=== PATIENT | male | born 1930 | race Caucasian/White ===

== ENCOUNTER 2017-10-11 13:05 | Inpatient (IN) | payer MEDICARE, OTHER ==
[2017-10-11] MEDS ORDERED: Sodium Chloride 0.9% 10 ML Syringe FLUSH PRN (13:11)
--- NOTE | 2017-10-11 13:25 | EDM.PDOC ---
ED HPI GENERAL MEDICAL PROBLEM - General Chief Complaint: Neuro Symptoms/Deficits Stated Complaint: VERO NAJERA Time Seen by Provider: 10/11/17 13:11 Source of Information: Reports: Patient, EMS, Family History Limitations: Reports: No Limitations - History of Present Illness INITIAL COMMENTS - FREE TEXT/NARRATIVE: Patient arrives with complaints of reduced LOC, weak left side, unequal pupils. Last known well of 1230 today. Upon arrival EMS states that left sided weakness is improving to the upper extremity, still same on left lower. They also state he oxygen saturation was 85% on room air on their arrival. Vero najera was called on this patient before his arrival. His describes him having a cough over the last couple of days. He is alert, oriented and has a score of 0 for NIHH. Patient denies history of CVA, IN, diabetes, liver issues. No kidney problems. He is being treated for prostate cancer. Additional medical history includes gout, HTN, hypercholesterolemia, BPH. He has no complaints today except for his cough and feeling a bit short of breath. Onset: Today, Sudden Onset Time: 12:30 Duration: Improving Location: Reports: Chest Associated Symptoms: Reports: Cough, Shortness of Breath - Related Data Allergies Allergy/AdvReac Type Severity Reaction Status Date / Time bupropion [From Wellbutrin] Allergy Lightheaded Verified 10/11/17 15:33 ness Penicillins Allergy Hives Verified 10/11/17 15:33 Home Meds: Home Meds Allopurinol [Zyloprim] 300 mg PO DAILY 10/11/17 [History] Ascorbic Acid 1,000 mg PO DAILY 10/11/17 [History] Aspirin [Halfprin] 81 mg PO DAILY 10/11/17 [History] Bicalutamide [Casodex] 50 mg PO DAILY 10/11/17 [History] Calcium Carbonate [Calcium] 600 mg PO DAILY 10/11/17 [History] Cholecalciferol (Vitamin D3) [Vitamin D] 1,000 units PO DAILY 10/11/17 [History] Metoprolol Succinate [Toprol XL] 12.5 mg PO BEDTIME 10/11/17 [History] Nitroglycerin [Nitrostat] 0.4 mg SL ASDIRECTED PRN 10/11/17 [History] Pramipexole Di-HCl [Mirapex] 0.25 mg PO BID 10/11/17 [History] Pramipexole [Mirapex] 0.125 mg PO DAILY 10/11/17 [History] Simvastatin 40 mg PO DAILY 10/11/17 [History] Tamsulosin [Tamsulosin 24 Hr] 0.4 mg PO DAILY 10/11/17 [History] ED ROS GENERAL - Review of Systems Review Of Systems: See Below Constitutional: Reports: No Symptoms HEENT: Reports: No Symptoms Respiratory: Reports: Shortness of Breath, Cough Cardiovascular: Reports: No Symptoms Endocrine: Reports: No Symptoms GI/Abdominal: Reports: No Symptoms : Reports: No Symptoms Musculoskeletal: Reports: No Symptoms Skin: Reports: No Symptoms Neurological: Reports: Confusion, Tremors, Weakness, Gait Disturbance, Other ( this is gathered from his . she also states confused speech) Psychiatric: Reports: No Symptoms Hematologic/Lymphatic: Reports: No Symptoms Immunologic: Reports: No Symptoms ED EXAM, NEURO - Physical Exam Exam: See Below Exam Limited By: No Limitations General Appearance: Alert, WD/WN, No Apparent Distress Eye Exam: Bilateral Eye: Abnormal Pupil (left pupil 3 mm, right 2 mm), EOMI, Normal Inspection, PERRL Ears: Normal TMs Throat/Mouth: Normal Inspection, Normal Lips, Normal Teeth, Normal Gums, Normal Oropharynx, Normal Voice, No Airway Compromise Head Exam: Atraumatic, Normocephalic Neck: Normal Inspection, Supple, Non-Tender, Full Range of Motion Respiratory/Chest: No Respiratory Distress, No Accessory Muscle Use, Chest Non- Tender, Rales Cardiovascular: Normal Peripheral Pulses, Regular Rate, Rhythm, No Edema, No Gallop, No JVD, No Murmur, No Rub GI/Abdominal: Normal Bowel Sounds, Soft, Non-Tender, No Organomegaly, No Distention, No Abnormal Bruit, No Mass Neurological: Alert, Normal Mood/Affect, Normal Dorsiflexion, CN II-XII Intact, Normal Plantar Flexion, Normal Gait, Normal Reflexes, No Motor/Sensory Deficits , Oriented x 3 Back Exam: Normal Inspection, Full Range of Motion, NT Extremities: Normal Inspection, Normal Range of Motion, Non-Tender, No Pedal Edema, Normal Capillary Refill Psychiatric: Normal Affect, Normal Mood Skin Exam: Warm, Dry, Intact, Normal Color, No Rash Course - Vital Signs Last Recorded V/S: Last Vital Signs Temp 36.6 C 10/11/17 15:10 Pulse 69 04/15/18 15:10 Resp 18 10/11/17 15:10 BP 131/58 L 10/11/17 15:10 Pulse Ox 94 L 10/11/17 15:10 - Orders/Labs/Meds Orders: Active Orders 24 hr Category Date Time Status Chest 1V Frontal [CR] Stat Exams 10/11/17 13:31 Taken Head wo Cont [CT] Stat Exams 10/11/17 13:11 Taken CULTURE BLOOD [BC] Stat Lab 10/11/17 14:03 Received CULTURE BLOOD [BC] Stat Lab 10/11/17 14:09 Received URINALYSIS W/MICROSCOPIC [UA W/MICROSCOPIC] [URIN] Stat Lab 10/11/17 13:56 Ordered Sodium Chloride 0.9% [Saline Flush] Med 10/11/17 13:11 Active 10 ml FLUSH ASDIRECTED PRN Blood Culture x2 Reflex Set [OM.PC] Stat Oth 10/11/17 13:42 Ordered Saline Lock Insert [OM.PC] Routine Oth 10/11/17 13:11 Ordered Medication Orders Sodium Chloride (Saline Flush) 10 ml FLUSH ASDIRECTED PRN PRN Reason: Keep Vein Open Last Admin: 10/11/17 15:55 Dose: 10 ml Labs: Laboratory Tests 10/11/17 10/11/17 10/11/17 Range/Units 13:29 13:29 13:29 WBC 11.7 H (4.0-10.0) x10^3/uL RBC 3.80 L (4.5-6.0) x10^6/uL Hgb 12.4 L (14.0-18.0) g/dL Hct 36.1 L (40.0-52.0) % MCV 95.0 H (78.0-93.0) fL MCH 32.6 H (26.0-32.0) pg MCHC 34.3 (32.0-36.0) g/dL RDW Coeff of Daisy 13.7 (10.0-15.0) % Plt Count 154 (130-400) x10^3/uL Neut % (Auto) 73.1 (50.0-80.0) % Lymph % (Auto) 13.4 L (25.0-50.0) % [place] % (Auto) 13.1 H (2.0-11.0) % Eos % (Auto) 0.2 (0.0-4.0) % Baso % (Auto) 0.2 (0.2-1.2) % PT 11.0 (9.8-11.8) SEC INR 1.0 L (2.0-3.5) APTT (22.0-34.0) SEC POC Sodium Sodium 125 L* (138-146) mmol/L POC Potassium Potassium 4.0 (3.5-4.9) mmol/L POC Chloride Chloride 88 L (98-109) mmol/L Carbon Dioxide 24 (24-29) mmol/L POC Total CO2 Anion Gap 17.0 (10-20) mmol/L POC Anion Gap POC BUN BUN 18 (8-26) mg/dL Creatinine 1.4 H (0.6-1.3) mg/dL POC Creatinine Est Cr Clr Drug Dosing TNP Estimated GFR (MDRD) 48 Glucose 104 (70-105) mg/dL POC Glucose Lactic Acid (0.4-2.0) mmol/L Calcium 8.4 L (8.5-10.1) mg/dL Corrected Calcium 8.64 (8.5-10.1) mg/dL Total Bilirubin 0.6 (0.2-1.0) mg/dL AST 28 (15-37) U/L ALT 24 (16-63) U/L Alkaline Phosphatase 36 L (46-116) U/L POC Troponin I (0.00-0.08) ng/mL Troponin I Cancelled NT-Pro-B Natriuret Pep (<=450) pg/mL Total Protein 7.0 (6.4-8.2) g/dL Albumin 3.7 (3.4-5.0) g/dL Globulin 3.3 g/dL Albumin/Globulin Ratio 1.12 TSH, Ultra Sensitive (0.358-3.74) uIU/mL Urine Color (YELLOW) Urine Appearance (CLEAR) Urine pH (5.0-8.0) Ur Specific [place] Urine Protein (NEGATIVE) mg/dL Urine Glucose (UA) (NEGATIVE) mg/dL Urine Ketones (NEGATIVE) mg/dL Urine Occult Blood (NEGATIVE) Urine Nitrite (NEGATIVE) Urine Bilirubin (NEGATIVE) Urine Urobilinogen (0.2) EU/dL Ur Leukocyte Esterase (NEGATIVE) Urine RBC (NOT SEEN) /HPF Urine WBC (NOT SEEN) /HPF Ur Squamous Epith Cells (NEGATIVE) /HPF Urine Bacteria (NEGATIVE) /HPF Urine Mucus (NEGATIVE) /LPF 10/11/17 10/11/17 10/11/17 Range/Units 13:29 13:29 13:29 WBC (4.0-10.0) x10^3/uL RBC (4.5-6.0) x10^6/uL Hgb (14.0-18.0) g/dL Hct (40.0-52.0) % MCV (78.0-93.0) fL MCH (26.0-32.0) pg MCHC (32.0-36.0) g/dL RDW Coeff of Daisy (10.0-15.0) % Plt Count (130-400) x10^3/uL Neut % (Auto) (50.0-80.0) % Lymph % (Auto) (25.0-50.0) % [place] % (Auto) (2.0-11.0) % Eos % (Auto) (0.0-4.0) % Baso % (Auto) (0.2-1.2) % PT (9.8-11.8) SEC INR (2.0-3.5) APTT 28.3 (22.0-34.0) SEC POC Sodium Sodium (138-146) mmol/L POC Potassium Potassium (3.5-4.9) mmol/L POC Chloride Chloride (98-109) mmol/L Carbon Dioxide (24-29) mmol/L POC Total CO2 Anion Gap (10-20) mmol/L POC Anion Gap POC BUN BUN (8-26) mg/dL Creatinine (0.6-1.3) mg/dL POC Creatinine Est Cr Clr Drug Dosing Estimated GFR (MDRD) Glucose (70-105) mg/dL POC Glucose Lactic Acid 0.9 (0.4-2.0) mmol/L Calcium (8.5-10.1) mg/dL Corrected Calcium (8.5-10.1) mg/dL Total Bilirubin (0.2-1.0) mg/dL AST (15-37) U/L ALT (16-63) U/L Alkaline Phosphatase (46-116) U/L POC Troponin I (0.00-0.08) ng/mL Troponin I NT-Pro-B Natriuret Pep 928 H (<=450) pg/mL Total Protein (6.4-8.2) g/dL Albumin (3.4-5.0) g/dL Globulin g/dL Albumin/Globulin Ratio TSH, Ultra Sensitive 3.704 (0.358-3.74) uIU/mL Urine Color (YELLOW) Urine Appearance (CLEAR) Urine pH (5.0-8.0) Ur Specific [place] Urine Protein (NEGATIVE) mg/dL Urine Glucose (UA) (NEGATIVE) mg/dL Urine Ketones (NEGATIVE) mg/dL Urine Occult Blood (NEGATIVE) Urine Nitrite (NEGATIVE) Urine Bilirubin (NEGATIVE) Urine Urobilinogen (0.2) EU/dL Ur Leukocyte Esterase (NEGATIVE) Urine RBC (NOT SEEN) /HPF Urine WBC (NOT SEEN) /HPF Ur Squamous Epith Cells (NEGATIVE) /HPF Urine Bacteria (NEGATIVE) /HPF Urine Mucus (NEGATIVE) /LPF 10/11/17 10/11/17 10/11/17 Range/Units 13:35 13:37 13:56 WBC (4.0-10.0) x10^3/uL RBC (4.5-6.0) x10^6/uL Hgb (14.0-18.0) g/dL Hct (40.0-52.0) % MCV (78.0-93.0) fL MCH (26.0-32.0) pg MCHC (32.0-36.0) g/dL RDW Coeff of Daisy (10.0-15.0) % Plt Count (130-400) x10^3/uL Neut % (Auto) (50.0-80.0) % Lymph % (Auto) (25.0-50.0) % [place] % (Auto) (2.0-11.0) % Eos % (Auto) (0.0-4.0) % Baso % (Auto) (0.2-1.2) % PT (9.8-11.8) SEC INR (2.0-3.5) APTT (22.0-34.0) SEC POC Sodium Cancelled Sodium (138-146) mmol/L POC Potassium Cancelled Potassium (3.5-4.9) mmol/L POC Chloride Cancelled Chloride (98-109) mmol/L Carbon Dioxide (24-29) mmol/L POC Total CO2 Cancelled Anion Gap (10-20) mmol/L POC Anion Gap Cancelled POC BUN Cancelled BUN (8-26) mg/dL Creatinine (0.6-1.3) mg/dL POC Creatinine Cancelled Est Cr Clr Drug Dosing Estimated GFR (MDRD) Glucose (70-105) mg/dL POC Glucose Cancelled Lactic Acid (0.4-2.0) mmol/L Calcium (8.5-10.1) mg/dL Corrected Calcium (8.5-10.1) mg/dL Total Bilirubin (0.2-1.0) mg/dL AST (15-37) U/L ALT (16-63) U/L Alkaline Phosphatase (46-116) U/L POC Troponin I 0.02 (0.00-0.08) ng/mL Troponin I NT-Pro-B Natriuret Pep (<=450) pg/mL Total Protein (6.4-8.2) g/dL Albumin (3.4-5.0) g/dL Globulin g/dL Albumin/Globulin Ratio TSH, Ultra Sensitive (0.358-3.74) uIU/mL Urine Color Yellow (YELLOW) Urine Appearance Clear (CLEAR) Urine pH 7.0 (5.0-8.0) Ur Specific [place] 1.015 Urine Protein 100 H (NEGATIVE) mg/dL Urine Glucose (UA) Negative (NEGATIVE) mg/dL Urine Ketones Trace H (NEGATIVE) mg/dL Urine Occult Blood Trace-intact H (NEGATIVE) Urine Nitrite Negative (NEGATIVE) Urine Bilirubin Negative (NEGATIVE) Urine Urobilinogen 0.2 (0.2) EU/dL Ur Leukocyte Esterase Trace H (NEGATIVE) Urine RBC 5-10 H (NOT SEEN) /HPF Urine WBC 5-10 H (NOT SEEN) /HPF Ur Squamous Epith Cells Moderate H (NEGATIVE) /HPF Urine Bacteria Few H (NEGATIVE) /HPF Urine Mucus Many H (NEGATIVE) /LPF Meds: Medications Generic Name Dose Route Start Last Admin Trade Name Freq PRN Reason Stop Dose Admin Sodium Chloride 10 ml 10/11/17 13:11 10/11/17 15:55 Saline Flush FLUSH 10 ml ASDIRECTED PRN Administration Keep Vein Open Discontinued Medications Generic Name Dose Route Start Last Admin Trade Name Ez PRN Reason Stop Dose Admin Azithromycin Confirm 10/11/17 14:39 10/11/17 15:29 Zithromax Administered 10/11/17 14:40 Not Given Dose 500 mg .ROUTE .STK-MED ONE Ceftriaxone Sodium 1 gm 10/11/17 13:31 10/11/17 14:11 Rocephin IVPUSH 10/11/17 13:32 1 gm ONETIME ONE Administration Vancomycin HCl 1,250 mg/ 250 mls @ 200 mls/hr 10/11/17 13:31 10/11/17 15:29 Sodium Chloride IV 10/11/17 14:45 Not Given ONETIME ONE Azithromycin 500 mg/ Sodium 250 mls @ 250 mls/hr 10/11/17 14:18 10/11/17 14: 51 Chloride IV 10/11/17 15:17 250 mls/hr ONETIME ONE Administration - Re-Assessments/Exams Free Text/Narrative Re-Assessment/Exam: 10/11/17 16:13 Chest x-ray shows left lower lobe infiltrates. No acute cranial process on head CT. Departure - Departure Time of Disposition: 15:03 Disposition: Admitted As Inpatient 66 Condition: Good Clinical Impression: Hyponatremia, Community acquired bacterial pneumonia - Discharge Information ED Communication - Discussed Case With (1) Discussed Case With (1): Admitting Provider (Called Dr. Topete with information regarding patient labs, etc. Patient to be admitted acute for pneumonia, hyponatremia) - My Orders Last 24 Hours: My Active Orders 10/11/17 13:11 Head wo Cont [CT] Stat Sodium Chloride 0.9% [Saline Flush] 10 ml FLUSH ASDIRECTED PRN Saline Lock Insert [OM.PC] Routine 10/11/17 13:31 Chest 1V Frontal [CR] Stat 10/11/17 13:42 Blood Culture x2 Reflex Set [OM.PC] Stat 10/11/17 13:56 URINALYSIS W/MICROSCOPIC [UA W/MICROSCOPIC] [URIN] Stat 10/11/17 14:03 CULTURE BLOOD [BC] Stat 10/11/17 14:09 CULTURE BLOOD [BC] Stat - Assessment/Plan Last 24 Hours: My Active Orders 10/11/17 13:11 Head wo Cont [CT] Stat Sodium Chloride 0.9% [Saline Flush] 10 ml FLUSH ASDIRECTED PRN Saline Lock Insert [OM.PC] Routine 10/11/17 13:31 Chest 1V Frontal [CR] Stat 10/11/17 13:42 Blood Culture x2 Reflex Set [OM.PC] Stat 10/11/17 13:56 URINALYSIS W/MICROSCOPIC [UA W/MICROSCOPIC] [URIN] Stat 10/11/17 14:03 CULTURE BLOOD [BC] Stat 10/11/17 14:09 CULTURE BLOOD [BC] Stat
[2017-10-11] MEDS ORDERED: cefTRIAXone 1 GM Vial IVPUSH ONE (13:31)
[2017-10-11 13:40] LABS: CHLORIDE,CL 88 mmol/L (98-109)
[2017-10-11 13:41] LABS: SODIUM,NA 125 mmol/L (138-146)
[2017-10-11] MEDS ORDERED: Azithromycin 500 MG in Sodium Chloride 0.9% 250 ML IV ONE (14:18)
[2017-10-11] MEDS ORDERED: Azithromycin 500 MG Vial ONE (14:39)
[2017-10-11] MEDS ORDERED: Albuterol 0.083% 2.5 MG/3 ML Neb Soln NEB PRN (16:53)
[2017-10-11] MEDS ORDERED: Nitroglycerin 0.4 MG Tab.SL SL PRN (16:59)
[2017-10-11] MEDS ORDERED: Albuterol/Ipratropium 3.0-0.5 MG/3 ML Neb Soln NEB SCH (17:00)
[2017-10-11] MEDS ORDERED: Azithromycin 500 MG in Sodium Chloride 0.9% 250 ML IV SCH (17:00)
[2017-10-11] MEDS ORDERED: cefTRIAXone 1 GM Vial IVPUSH SCH (17:00)
[2017-10-11] MEDS: Sodium Chloride 0.9% 1,000 ML IV SCH (17:18)
[2017-10-11] MEDS: Enoxaparin 40 MG/0.4 ML Syringe SUBCUT SCH (17:37)
[2017-10-11] MEDS: Albuterol/Ipratropium 3.0-0.5 MG/3 ML Neb Soln NEB SCH (18:27)
[2017-10-11] MEDS: Pramipexole 0.125 MG Tab PO SCH (19:45)
[2017-10-11] MEDS: Metoprolol Succinate 25 MG Tab.ER PO SCH (19:45)
--- NOTE | 2017-10-11 23:40 | HP ---
SUBJECTIVE: 87-year-old white male, brought to the emergency room by ambulance this afternoon. had noted some changes in him. Ambulance noticed some reduced level of consciousness and some mild left-sided weakness and unequal pupils, and because of that a code reinaldo was called. He was also noted to have O2 sats of 85% on room air on his arrival. In the emergency room, his NIH score was 0, and his head CT was unremarkable per ED report. He had also been having cold symptoms for the past couple of days with significant cough especially yesterday. The cough was nonproductive, but he has began having some increased shortness of breath and was baseline. No chest pain or discomfort was reported. PAST MEDICAL HISTORY: Significant for hyperlipidemia, hypertension, prostate cancer, BPH, coronary artery disease with stents placed in 2001, quadriceps tendon rupture, gout, arthritis, chronic back pain, tubular adenoma of the colon, he is a smoker, restless legs syndrome, degenerative disk disease of lumbar spine. He was scheduled for carpal tunnel surgery this coming Thursday. He had a preop this past week at [facility]. His [facility] chart was available for review. HOME MEDICATIONS: 1. Calcium 600 mg daily. 2. Casodex 50 mg daily. 3. Allopurinol 300 mg daily. 4. Simvastatin 40 mg daily. 5. Metoprolol-XL 25 mg daily. 6. Mirapex 0.25 mg b.i.d. and half a tablet in the morning. 7. Flomax 0.4 mg daily. 8. Aspirin 81 mg daily. 9. Vitamin D 1000 units daily. 10.Vitamin C 500 mg daily. 11.Sublingual nitroglycerin p.r.n. 12.He also receives Lupron injections every three months along with Prolia injection. ALLERGIES: Wellbutrin and penicillin causing hives. IMMUNIZATIONS: Currently listed in the [facility] chart. SOCIAL HISTORY: He is a smoker. Occasional alcohol use. REVIEW OF SYSTEMS: Denies any headache. Denies any upper respiratory symptoms. No nausea, vomiting, or abdominal pain. No change in bowel habits. Some urinary frequency. Denies any symptoms in his extremities. OBJECTIVE: General: He is alert, tired, lying in bed. Vital Signs: His temperature is 98, pulse is 69, blood pressure is 131/58, respirations are 18, and O2 sats 94%. HEENT: Pupils are unremarkable. TMs negative. Throat is clear. Neck: No adenopathy. Some decreased range of motion. Heart: Regular rate and rhythm. No murmur heard. Lungs: Have diffuse rhonchi, some expiratory wheezing and some rales in the left base. Abdomen: Soft, nontender, protuberant. No masses. No hepatosplenomegaly noted. Extremities: Good range of motion. There is no edema. Warm and dry. Pulses intact. Neurologic: Deep tendon reflexes are symmetrical. Sensation intact. LABORATORY DATA: White count 11.7, hemoglobin 12.4, INR of 1. Sodium 125, potassium 4.0, BUN of 18, creatinine 1.4, glucose of 104. Lactic acid 0.9. LFT's are normal. Troponin is negative. ProBNP is 928. TSH is normal at 3.704. X-RAY: Chest x-ray done in the emergency room consistent with pneumonia, probable bilateral. Here in the emergency room, he was given Rocephin 1 g IV and azithromycin 500 mg IV. I do not believe he got the vancomycin. ASSESSMENT: 1. Bilateral pneumonitis - community-acquired pneumonia. 2. Hyponatremia. 3. Coronary artery disease. 4. Hyperlipidemia. 5. Hypertension. 6. Prostate cancer. PLAN: The patient will be admitted to acute care status. We will continue with his Rocephin and Zithromax antibiotics. Start DuoNeb nebulizers. O2 as needed. We will place him on a fluid restriction, and give him a little bit of IV fluids for his hyponatremia. He identifies Dr. Emilie Louis, his primary provider and she will assume care in the morning. FM: 10/11/2017 17:15:39 MODL: 10/11/2017 23:08:43 /[id number]
[2017-10-12] MEDS: Albuterol/Ipratropium 3.0-0.5 MG/3 ML Neb Soln NEB SCH ×4 (00:40→18:18)
[2017-10-12] MEDS: Sodium Chloride 0.9% 1,000 ML IV SCH (06:46)
[2017-10-12 07:06] LABS: CHLORIDE,CL 96 mmol/L (98-107); SODIUM,NA 130 mmol/L (136-145)
[2017-10-12] MEDS: Simvastatin 40 MG Tab PO SCH (08:21)
[2017-10-12] MEDS: Calcium Carbonate/Vitamin D3 1250 MG-200 Unit Tab PO SCH (08:21)
[2017-10-12] MEDS: Tamsulosin 0.4 MG Cap.ER PO SCH (08:22)
[2017-10-12] MEDS: Enoxaparin 40 MG/0.4 ML Syringe SUBCUT SCH (08:22)
[2017-10-12] MEDS: Aspirin 81 MG Tab.EC PO SCH (08:22)
[2017-10-12] MEDS: Pramipexole 0.125 MG Tab PO SCH ×3 (08:22→20:43)
[2017-10-12] MEDS: Ascorbic Acid 500 MG Tab PO SCH (08:22)
[2017-10-12] MEDS: Cholecalciferol (Vitamin D3) 1,000 Unit Tab PO SCH (08:22)
[2017-10-12] MEDS: Allopurinol 300 MG Tab PO SCH (08:23)
[2017-10-12] MEDS: Potassium Chloride 10 MEQ Tab.ER PO SCH (09:17)
[2017-10-12] MEDS: predniSONE 20 MG Tab PO SCH (09:17)
--- NOTE | 2017-10-12 11:20 | PN ---
Progress Note for WING MIRANDA Date: 10/12/2017 Room #: VM.204 SUBJECTIVE: Hospital day #2 on an 87-year-old admitted yesterday with generalized weakness, concern for a stroke with some left-sided weakness, but found to have pneumonia. He had been having cold symptoms since Thursday, so for about 2 to 3 days, but really got sick yesterday. He denied any fever. He states he was not wheezing. His cough was not productive, but he was short of breath. He has known history of COPD, but is not on any inhalers. He continues to smoke. The patient denies any chest pain. No stomach pain. He is not requiring any oxygen. OBJECTIVE: Vital Signs: Objectively, temperature is 98, pulse 56, blood pressure 146/76, respiratory rate 18, and O2 95% on room air. General: He is in no acute distress. Heart: Regular rate and rhythm. Lungs: Sounds are decreased with rhonchi throughout. Mental Status: He is alert and orientated x3. Extremities: Warm and dry. No edema. Abdomen: Nondistended, nontender. LABORATORY DATA: Lab work does show white count improved from 11.7 to 7.2, hemoglobin 11.9, and platelets 161. Sodium improved up to 130, potassium 3.4, chloride 96, bicarb 25, BUN 19, creatinine improved from 1.4 to 0.9, and calcium 8.1. It should also be noted in the HPI, he was having some nocturia prior to admission. UA did show 5 to 10 wbc's and 5 to 10 rbc's. ASSESSMENT: 1. Bilateral community-acquired pneumonia. He is on day #2 Rocephin and Zithromax. 2. Chronic obstructive pulmonary disease exacerbation due to bilateral pneumonia. We will continue scheduled nebs. I will start some oral prednisone 20 mg daily today. We will get RT involved for flutter valve. 3. Hyponatremia, improving. The patient does have a history of this. Likely, it has worsened due to pneumonia. I am going to discontinue the fluid restriction as I am stopping intravenous fluids. We will repeat a sodium tomorrow. 4. History of coronary artery disease, stable without chest pain. 5. Known BPH. We will check a bladder scan for any urinary retention, especially given nocturia. 6. Essential hypertension, controlled. 7. Prostate cancer, on treatments. 8. Smoking. 9. Generalized weakness. This was due to pneumonia. The patient is not having any focal symptoms to suggest stroke. PLAN: At this point, the patient will continue acute cares. I will keep him on IV Rocephin. We will try switching over to oral Zithromax today. We will stop IV fluids. We will remove the fluid restriction. He is on Lovenox 40 daily for DVT prophylaxis. We will get him up and moving with therapies. I anticipate hopefully discharge home as soon as tomorrow. He also had some vancomycin ordered initially in the ER, but that was never given. Blood cultures are pending. Sputum culture has been ordered. MKA: 10/12/2017 08:46:28 MODL: 10/12/2017 09:22:13 /[id number]
[2017-10-12] MEDS: cefTRIAXone 1 GM Vial IVPUSH SCH (13:03)
[2017-10-12] MEDS ORDERED: Azithromycin 500 MG in Sodium Chloride 0.9% 250 ML IV SCH (14:00)
[2017-10-12] MEDS: Metoprolol Succinate 25 MG Tab.ER PO SCH (20:44)
[2017-10-13] MEDS: Albuterol/Ipratropium 3.0-0.5 MG/3 ML Neb Soln NEB SCH ×4 (01:17→18:17)
[2017-10-13] MEDS: Aspirin 81 MG Tab.EC PO SCH (07:31)
[2017-10-13] MEDS: Tamsulosin 0.4 MG Cap.ER PO SCH (07:31)
[2017-10-13] MEDS: predniSONE 20 MG Tab PO SCH (07:31)
[2017-10-13] MEDS: Cholecalciferol (Vitamin D3) 1,000 Unit Tab PO SCH (07:31)
[2017-10-13] MEDS: Ascorbic Acid 500 MG Tab PO SCH (07:31)
[2017-10-13] MEDS: Potassium Chloride 10 MEQ Tab.ER PO SCH (07:31)
[2017-10-13] MEDS: Simvastatin 40 MG Tab PO SCH (07:31)
[2017-10-13] MEDS: Calcium Carbonate/Vitamin D3 1250 MG-200 Unit Tab PO SCH (07:32)
[2017-10-13] MEDS: Allopurinol 300 MG Tab PO SCH (07:32)
[2017-10-13] MEDS: Pramipexole 0.125 MG Tab PO SCH ×3 (07:32→20:46)
[2017-10-13] MEDS: Enoxaparin 40 MG/0.4 ML Syringe SUBCUT SCH (07:32)
[2017-10-13 07:50] LABS: CHLORIDE,CL 98 mmol/L (98-107); SODIUM,NA 132 mmol/L (136-145)
--- NOTE | 2017-10-13 11:56 | PCM.PN ---
- General Info Date of Service: 10/13/17 Admission Dx/Problem (Free Text): History: He is now in his third day of hospitalization for acute bronchopneumonia, with hypoxia, cough, and dyspnea, though his CXR shows only a vague patchy infiltrate. He has known COPD and was continuing to smoke up to the time of admission. He is on Rocephin and Zithromax, is feeling better, thinks he might feel well enough to go home but says his wants to make sure he doesnt come home until he is back on his feet. He has only done a little bit of walking with his walker so far. Even though his respiration is very coarse and noisy, he has so far been unable to bring up any sputum for culture as has been ordered. He is on room air and his oximetry is up to 92%, and his Na+ which was low at first is back up to 132 today, only mildly decreased. K+ also mildly decreased , 3.4. Exam: -Heart sounds quite diminished, seem regular -Not obviously dyspneic lying in bed, but his lung sounds are very coarse and rattling throughout -Alert and answers questions appropriately, no facial asymmetry noted Impression: -Bronchopneumonia -Exacerbation of COPD -Hyponatremia, improved Plan: -If he can walk around fairly well with his walker today, then let him go home tomorrow, will need to remind his that his lungs will never be normal so we cant keep him in the hospital until then. -CXR tomorrow - Patient Data Vitals - Most Recent: Last Vital Signs Temp 36.6 C 10/13/17 10:00 Pulse 65 10/13/17 10:00 Resp 20 10/13/17 10:00 BP 150/93 H 10/13/17 10:00 Pulse Ox 92 L 10/13/17 10:00 Weight - Most Recent: 90.265 kg I&O - Last 24 Hours: Intake & Output 10/12/17 10/13/17 10/13/17 22:59 06:59 14:59 Intake Total 580 350 660 Output Total 500 300 Balance 580 -150 360 Lab Results Last 24 Hours: Laboratory Results - last 24 hr 10/13/17 10/13/17 Range/Units 06:54 06:54 WBC 6.9 (4.0-10.0) x10^3/uL RBC 3.36 L (4.5-6.0) x10^6/uL Hgb 10.9 L (14.0-18.0) g/dL Hct 31.8 L (40.0-52.0) % MCV 94.6 H (78.0-93.0) fL MCH 32.4 H (26.0-32.0) pg MCHC 34.3 (32.0-36.0) g/dL RDW Coeff of Daisy 13.4 (10.0-15.0) % Plt Count 165 (130-400) x10^3/uL Neut % (Auto) 66.5 (50.0-80.0) % Lymph % (Auto) 21.4 L (25.0-50.0) % [place] % (Auto) 11.9 H (2.0-11.0) % Eos % (Auto) 0.1 (0.0-4.0) % Baso % (Auto) 0.1 L (0.2-1.2) % Sodium 132 L (136-145) mmol/L Potassium 3.4 L (3.5-5.1) mmol/L Chloride 98 (98-107) mmol/L Carbon Dioxide 25 (21-32) mmol/L Anion Gap 12.4 (10-20) mmol/L BUN 17 (7-18) mg/dL Creatinine 0.8 (0.70-1.30) mg/dL Est Cr Clr Drug Dosing 69.29 mL/min Estimated GFR (MDRD) > 60 Glucose 96 (74-106) mg/dL Calcium 8.0 L (8.5-10.1) mg/dL Wolfgang Results Last 24 Hours: Microbiology 10/11/17 14:09 Aerobic Blood Culture - Preliminary Blood - Venous - Lab Draw NO GROWTH AFTER 1 DAY Anaerobic Blood Culture - Preliminary NO GROWTH AFTER 1 DAY 10/11/17 14:03 Aerobic Blood Culture - Preliminary Blood - Venous NO GROWTH AFTER 1 DAY Anaerobic Blood Culture - Preliminary NO GROWTH AFTER 1 DAY Med Orders - Current: Current Medications Albuterol (Proventil Neb Soln) 2.5 mg NEB Q2H PRN PRN Reason: Dyspnea Albuterol/Ipratropium (Duoneb 3.0-0.5 Mg/3 Ml) 3 ml NEB Q6HRRT [facility] Last Admin: 10/13/17 07:11 Dose: 3 ml Allopurinol (Zyloprim) 300 mg PO DAILY [facility] Last Admin: 10/13/17 07:32 Dose: 300 mg Ascorbic Acid (Vitamin C) 1,000 mg PO DAILY [facility] Last Admin: 10/13/17 07:31 Dose: 1,000 mg Aspirin (Halfprin) 81 mg PO DAILY [facility] Last Admin: 10/13/17 07:31 Dose: 81 mg Azithromycin (Zithromax) 500 mg PO DAILY [facility] Calcium Carbonate (Calcium Carbonate/Vitamin D 1250 Mg-200 Unit) 1 tab PO DAILY [facility] Last Admin: 10/13/17 07:32 Dose: 1 tab Ceftriaxone Sodium (Rocephin) 1 gm IVPUSH Q24H [facility] Last Admin: 10/12/17 13:03 Dose: 1 gm Cholecalciferol (Vitamin D3) 1,000 units PO DAILY [facility] Last Admin: 10/13/17 07:31 Dose: 1,000 units Enoxaparin Sodium (Lovenox) 40 mg SUBCUT DAILY [facility] Last Admin: 10/13/17 07:32 Dose: 40 mg Metoprolol Succinate (Toprol Xl) 12.5 mg PO BEDTIME [facility] Last Admin: 10/12/17 20:44 Dose: 12.5 mg Nitroglycerin (Nitrostat) 0.4 mg SL ASDIRECTED PRN PRN Reason: Chest Pain (Bicalutamide [ Casodex] 50 Mg)Own Med 50 mg PO DAILY [facility] Last Admin: 10/13/17 07:32 Dose: Not Given Potassium Chloride (Klor-Con 10) 20 meq PO WITHBREAKFAST [facility] Last Admin: 10/13/17 07:31 Dose: 20 meq Pramipexole Dihydrochloride (Mirapex) 0.125 mg PO DAILY [facility] Last Admin: 10/13/17 07:32 Dose: 0.125 mg Pramipexole Dihydrochloride (Mirapex) 0.25 mg PO BID@1300,2000 [facility] Last Admin: 10/12/17 20:43 Dose: 0.25 mg Prednisone (Prednisone) 20 mg PO WITHBREAKFAST [facility] Last Admin: 10/13/17 07:31 Dose: 20 mg Simvastatin (Zocor) 40 mg PO DAILY [facility] Last Admin: 10/13/17 07:31 Dose: 40 mg Sodium Chloride (Saline Flush) 10 ml FLUSH ASDIRECTED PRN PRN Reason: Keep Vein Open Last Admin: 10/11/17 15:55 Dose: 10 ml Tamsulosin HCl (Flomax) 0.4 mg PO DAILY [facility] Last Admin: 10/13/17 07:31 Dose: 0.4 mg Discontinued Medications Albuterol/Ipratropium (Duoneb 3.0-0.5 Mg/3 Ml) 3 ml NEB Q6H [facility] Last Admin: 10/11/17 17:26 Dose: Not Given Azithromycin (Zithromax) Confirm Administered Dose 500 mg .ROUTE .STK-MED ONE Stop: 10/11/17 14:40 Last Admin: 10/11/17 15:29 Dose: Not Given Ceftriaxone Sodium (Rocephin) 1 gm IVPUSH ONETIME ONE Stop: 10/11/17 13:32 Last Admin: 10/11/17 14:11 Dose: 1 gm Vancomycin HCl 1,250 mg/ (Sodium Chloride) 250 mls @ 200 mls/hr IV ONETIME ONE Stop: 10/11/17 14:45 Last Admin: 10/11/17 15:29 Dose: Not Given Azithromycin 500 mg/ Sodium (Chloride) 250 mls @ 250 mls/hr IV ONETIME ONE Stop: 10/11/17 15:17 Last Admin: 10/11/17 14:51 Dose: 250 mls/hr Sodium Chloride (Normal Saline) 1,000 mls @ 75 mls/hr IV ASDIRECTED [facility] Last Admin: 10/12/17 06:46 Dose: 75 mls/hr Azithromycin 500 mg/ Sodium (Chloride) 250 mls @ 250 mls/hr IV Q24H [facility] - Problem List Review Problem List Initiated/Reviewed/Updated: Yes - My Orders Last 24 Hours: My Active Orders 10/14/17 07:30 CXR [Chest 2V] [CR] Routine
[2017-10-13] MEDS: cefTRIAXone 1 GM Vial IVPUSH SCH (13:01)
[2017-10-13] MEDS: Metoprolol Succinate 25 MG Tab.ER PO SCH (20:45)
[2017-10-14] MEDS: Albuterol/Ipratropium 3.0-0.5 MG/3 ML Neb Soln NEB SCH ×2 (00:31→07:07)
[2017-10-14] MEDS: predniSONE 20 MG Tab PO SCH (07:25)
[2017-10-14] MEDS: Potassium Chloride 10 MEQ Tab.ER PO SCH (07:25)
[2017-10-14] MEDS: Calcium Carbonate/Vitamin D3 1250 MG-200 Unit Tab PO SCH (07:25)
[2017-10-14] MEDS: Simvastatin 40 MG Tab PO SCH (07:25)
[2017-10-14] MEDS: Pramipexole 0.125 MG Tab PO SCH (07:26)
[2017-10-14] MEDS: Ascorbic Acid 500 MG Tab PO SCH (07:26)
[2017-10-14] MEDS: Enoxaparin 40 MG/0.4 ML Syringe SUBCUT SCH (07:26)
[2017-10-14] MEDS: Aspirin 81 MG Tab.EC PO SCH (07:26)
[2017-10-14] MEDS: Cholecalciferol (Vitamin D3) 1,000 Unit Tab PO SCH (07:26)
[2017-10-14] MEDS: Allopurinol 300 MG Tab PO SCH (07:26)
[2017-10-14] MEDS: Tamsulosin 0.4 MG Cap.ER PO SCH (07:26)
--- NOTE | 2017-10-14 09:49 | PCM.DCSUM1 ---
Discharge Summary - Hospital Course Free Text/Narrative:: Discharge Diagnoses: -Bronchopneumonia -COPD -Acute delerium -Hyponatremia, improved -Hypokalemia, improved Secondary Diagnoses: -Hx prostate carcinoma -Coronary artery disease no chest pain -Restless leg syndrome Reason for Admission: Found weak, confused, hypoxic at home, first thought to have had a stroke and was admitted to ER as a Code Green. Initial Findings: -Oximetry OK -Bilateral patchy infiltrate, mild -Mildly confused -Na+ 125, K+ 4.0 Treatment and Course in Hospital: He was started on IV Rocephin, got 1 dose of IV Zithromax and was to continue orally but did not because of an error in start date entry. He remained afebrile , continued to have lots of coarse rhonchi and was quite unable to bring up sputum until the day prior to discharge. He did feel stronger and was able to walk around with a walker. With IV fluid is Na+ came up to 132, K+ remained normal at 3.5. He also received low dose oral prednisone during his hospital stay, D/Cd on discharge. Repeat CXR on 10/14/17 shows improvement. Condition on Discharge: -Heart sounds very distant but regular -Coarse rhonchi have dramatically improved since 10/13, he is coughing up some sputum -Afebrile -Vital signs including BP OK Discharge Plan: -Discussed smoking cessation, he is unwilling to commit to quitting since his smokes also but he says he will try -Ceftin 500 mg BID 4 days -Zithromax 500 mg daily 4 days -See ALYSSIA next week in clinic - Discharge Data Discharge Date: 10/14/17 Discharge Disposition: Home, Self-Care 01 Preliminary Cause of *Q: Multi System Organ Failure Condition: Good - Patient Summary/Data Consults: Consultations 10/12/17 08:24 OT Evaluation and Treatment [CONS] Routine PT Evaluation and Treatment [CONS] Routine - Discharge Plan Prescriptions/Med Rec: Azithromycin [IJD: Azithromycin] 500 mg PO DAILY #8 tab Cefuroxime Axetil [Cefuroxime] 500 mg PO BID #8 tablet Home Medications: Home Meds Allopurinol [Zyloprim] 300 mg PO DAILY 10/11/17 [History] Ascorbic Acid 1,000 mg PO DAILY 10/11/17 [History] Aspirin [Halfprin] 81 mg PO DAILY 10/11/17 [History] Bicalutamide [Casodex] 50 mg PO DAILY 10/11/17 [History] Calcium Carbonate [Calcium] 600 mg PO DAILY 10/11/17 [History] Cholecalciferol (Vitamin D3) [Vitamin D3] 1,000 units PO DAILY 10/11/17 [History ] Metoprolol Succinate [Toprol XL] 12.5 mg PO BEDTIME 10/11/17 [History] Nitroglycerin [Nitrostat] 0.4 mg SL ASDIRECTED PRN 10/11/17 [History] Pramipexole Di-HCl [Mirapex] 0.25 mg PO BID 10/11/17 [History] Pramipexole [Mirapex] 0.125 mg PO DAILY 10/11/17 [History] Simvastatin 40 mg PO DAILY 10/11/17 [History] Tamsulosin [Flomax] 0.4 mg PO DAILY 10/11/17 [History] Azithromycin [IJD: Azithromycin] 500 mg PO DAILY #8 tab 10/14/17 [Rx] Cefuroxime Axetil [Cefuroxime] 500 mg PO BID #8 tablet 10/14/17 [Rx] Forms: ED Department Discharge Referrals: Emilie Louis DO [Primary Care Provider] - - Patient Data Vitals - Most Recent: Last Vital Signs Temp 37.2 C 10/14/17 06:00 Pulse 103 H 10/14/17 06:00 Resp 18 10/14/17 06:00 BP 140/68 10/14/17 06:00 Pulse Ox 99 10/14/17 06:00 Weight - Most Recent: 89.811 kg I&O - Last 24 hours: Intake & Output 10/13/17 10/14/17 10/14/17 22:59 06:59 14:59 Intake Total 180 1500 120 Output Total 400 1500 Balance -220 0 120 JEANA Results - Last 24 hrs: Microbiology 10/11/17 14:09 Aerobic Blood Culture - Preliminary Blood - Venous - Lab Draw NO GROWTH AFTER 2 DAYS Anaerobic Blood Culture - Preliminary NO GROWTH AFTER 2 DAYS 10/11/17 14:03 Aerobic Blood Culture - Preliminary Blood - Venous NO GROWTH AFTER 2 DAYS Anaerobic Blood Culture - Preliminary NO GROWTH AFTER 2 DAYS Med Orders - Current: Current Medications Albuterol (Proventil Neb Soln) 2.5 mg NEB Q2H PRN PRN Reason: Dyspnea Last Admin: 10/14/17 04:46 Dose: 2.5 mg Albuterol/Ipratropium (Duoneb 3.0-0.5 Mg/3 Ml) 3 ml NEB Q6HRRT [facility] Last Admin: 10/14/17 07:07 Dose: 3 ml Allopurinol (Zyloprim) 300 mg PO DAILY [facility] Last Admin: 10/14/17 07:26 Dose: 300 mg Ascorbic Acid (Vitamin C) 1,000 mg PO DAILY [facility] Last Admin: 10/14/17 07:26 Dose: 1,000 mg Aspirin (Halfprin) 81 mg PO DAILY [facility] Last Admin: 10/14/17 07:26 Dose: 81 mg Azithromycin (Zithromax) 500 mg PO DAILY [facility] Calcium Carbonate (Calcium Carbonate/Vitamin D 1250 Mg-200 Unit) 1 tab PO DAILY [facility] Last Admin: 10/14/17 07:25 Dose: 1 tab Ceftriaxone Sodium (Rocephin) 1 gm IVPUSH Q24H [facility] Last Admin: 10/13/17 13:01 Dose: 1 gm Cholecalciferol (Vitamin D3) 1,000 units PO DAILY [facility] Last Admin: 10/14/17 07:26 Dose: 1,000 units Enoxaparin Sodium (Lovenox) 40 mg SUBCUT DAILY [facility] Last Admin: 10/14/17 07:26 Dose: 40 mg Metoprolol Succinate (Toprol Xl) 12.5 mg PO BEDTIME [facility] Last Admin: 10/13/17 20:45 Dose: 12.5 mg Nitroglycerin (Nitrostat) 0.4 mg SL ASDIRECTED PRN PRN Reason: Chest Pain (Bicalutamide [ Casodex] 50 Mg)Own Med 50 mg PO DAILY [facility] Last Admin: 10/14/17 07:28 Dose: 50 mg Potassium Chloride (Klor-Con 10) 20 meq PO WITHBREAKFAST [facility] Last Admin: 10/14/17 07:25 Dose: 20 meq Pramipexole Dihydrochloride (Mirapex) 0.125 mg PO DAILY [facility] Last Admin: 10/14/17 07:26 Dose: 0.125 mg Pramipexole Dihydrochloride (Mirapex) 0.25 mg PO BID@1300,2000 [facility] Last Admin: 10/13/17 20:46 Dose: 0.25 mg Prednisone (Prednisone) 20 mg PO WITHBREAKFAST [facility] Last Admin: 10/14/17 07:25 Dose: 20 mg Simvastatin (Zocor) 40 mg PO DAILY [facility] Last Admin: 10/14/17 07:25 Dose: 40 mg Sodium Chloride (Saline Flush) 10 ml FLUSH ASDIRECTED PRN PRN Reason: Keep Vein Open Last Admin: 10/11/17 15:55 Dose: 10 ml Tamsulosin HCl (Flomax) 0.4 mg PO DAILY [facility] Last Admin: 10/14/17 07:26 Dose: 0.4 mg Discontinued Medications Albuterol/Ipratropium (Duoneb 3.0-0.5 Mg/3 Ml) 3 ml NEB Q6H [facility] Last Admin: 10/11/17 17:26 Dose: Not Given Azithromycin (Zithromax) Confirm Administered Dose 500 mg .ROUTE .STK-MED ONE Stop: 10/11/17 14:40 Last Admin: 10/11/17 15:29 Dose: Not Given Ceftriaxone Sodium (Rocephin) 1 gm IVPUSH ONETIME ONE Stop: 10/11/17 13:32 Last Admin: 10/11/17 14:11 Dose: 1 gm Vancomycin HCl 1,250 mg/ (Sodium Chloride) 250 mls @ 200 mls/hr IV ONETIME ONE Stop: 10/11/17 14:45 Last Admin: 10/11/17 15:29 Dose: Not Given Azithromycin 500 mg/ Sodium (Chloride) 250 mls @ 250 mls/hr IV ONETIME ONE Stop: 10/11/17 15:17 Last Admin: 10/11/17 14:51 Dose: 250 mls/hr Sodium Chloride (Normal Saline) 1,000 mls @ 75 mls/hr IV ASDIRECTED [facility] Last Admin: 10/12/17 06:46 Dose: 75 mls/hr Azithromycin 500 mg/ Sodium (Chloride) 250 mls @ 250 mls/hr IV Q24H [facility]
[2017-10-14 09:55] VITALS: BP 153/78
[2017-10-15] MEDS ORDERED: Azithromycin 250 MG Tab PO SCH (09:00)
== END 2017-10-14 12:13 | disposition home or self-care (01) | DRG 194 ==
LOC: VM.ED 13:05 → VM.MS 14:21
PROVIDERS: ADMIT Family Medicine; ATTEND Internal Medicine
DX: J15.9 Unspecified bacterial pneumonia (principal); E87.1 Hypo-osmolality and hyponatremia; J44.0 Chronic obstructive pulmonary disease with (acute) lower respiratory infection; J44.1 Chronic obstructive pulmonary disease with (acute) exacerbation; C61 Malignant neoplasm of prostate; E78.00 Pure hypercholesterolemia, unspecified; R25.1 Tremor, unspecified; N40.0 Benign prostatic hyperplasia without lower urinary tract symptoms; M10.9 Gout, unspecified; R26.9 Unspecified abnormalities of gait and mobility; E87.6 Hypokalemia; G25.81 Restless legs syndrome; R09.02 Hypoxemia; R53.1 Weakness; R05 Cough; R06.02 Shortness of breath; E78.5 Hyperlipidemia, unspecified; G89.29 Other chronic pain; M19.90 Unspecified osteoarthritis, unspecified site; F17.200 Nicotine dependence, unspecified, uncomplicated; M51.36 Other intervertebral disc degeneration, lumbar region; R41.0 Disorientation, unspecified; Z88.0 Allergy status to penicillin; Z88.8 Allergy status to other drugs, medicaments and biological substances; Z95.5 Presence of coronary angioplasty implant and graft; Z79.82 Long term (current) use of aspirin; Z79.899 Other long term (current) drug therapy
CPT/HCPCS: 36415; 51798; 70450; 71045; 71046; 80048; 80053; 81001; 83605; 83735; 83880; 84443; 84484; 85025; 85610; 85730; 87040; 87804; 93005; 94640; 94667; 94668; 94760; 96374; 96375; 97161-GP; 97165-GO; 99285; 99285-GF; A9270-GY; J0456; J0696; J1650; J7030; J7050; J7620-GY

== ENCOUNTER 2018-12-16 14:33 | Emergency (ER) | payer MEDICARE, OTHER ==
[2018-12-16] MEDS ORDERED: Albuterol/Ipratropium 3.0-0.5 MG/3 ML Neb Soln NEB ONE (14:42)
[2018-12-16] MEDS ORDERED: Sodium Chloride 0.9% 10 ML Syringe FLUSH PRN (14:42)
[2018-12-16] MEDS ORDERED: methylPREDNISolone Sodium Succinate 40 MG/1 ML SDV IVPUSH ONE (14:42)
[2018-12-16] MEDS ORDERED: Sodium Chloride 0.9% 1,000 ML IV ONE (14:47)
--- NOTE | 2018-12-16 15:03 | EDM.PDOC ---
ED HPI GENERAL MEDICAL PROBLEM - General Chief Complaint: General Stated Complaint: LOW BLOOD PRESSURE Time Seen by Provider: 12/16/18 14:40 Source of Information: Reports: Patient History Limitations: Reports: No Limitations - History of Present Illness INITIAL COMMENTS - FREE TEXT/NARRATIVE: Patient report called by Dr. Emilie Louis from the [facility]. They brought the patient over due to low systolic blood pressure in the 70's. He states he has had chills and cough over the last 1-2 days with increasing weakness. Some shortness of breath. He denies chest pain, no abdominal pain, no nausea or vomiting. Denies headache. He is able to ambulate. Will initiate sepsis work up with his complaints and based upon report from his provider. Onset Date: 12/15/18 Duration: Getting Worse Location: Reports: Generalized Severity: Moderate Worsens with: Reports: Movement Associated Symptoms: Reports: cough w sputum, Fever/Chills, Shortness of Breath - Related Data Allergies Allergy/AdvReac Type Severity Reaction Status Date / Time bupropion [From Wellbutrin] Allergy Lightheaded Verified 12/16/18 15:04 ness Penicillins Allergy Hives Verified 12/16/18 15:04 Home Meds: Home Meds Allopurinol [Zyloprim] 300 mg PO DAILY 10/11/17 [History] Ascorbic Acid 1,000 mg PO DAILY 10/11/17 [History] Aspirin [Halfprin] 81 mg PO DAILY 10/11/17 [History] Bicalutamide [Casodex] 50 mg PO DAILY 10/11/17 [History] Calcium Carbonate [Calcium] 600 mg PO DAILY 10/11/17 [History] Cholecalciferol (Vitamin D3) [Vitamin D3] 1,000 units PO DAILY 10/11/17 [History ] Metoprolol Succinate [Toprol XL] 12.5 mg PO BEDTIME 10/11/17 [History] Nitroglycerin [Nitrostat] 0.4 mg SL ASDIRECTED PRN 10/11/17 [History] Pramipexole Di-HCl [Mirapex] 0.25 mg PO BID 10/11/17 [History] Pramipexole [Mirapex] 0.125 mg PO DAILY 10/11/17 [History] Simvastatin 40 mg PO DAILY 10/11/17 [History] Tamsulosin [Flomax] 0.4 mg PO DAILY 10/11/17 [History] Azithromycin [IJD: Azithromycin] 500 mg PO DAILY #8 tab 10/14/17 [Rx] Cefuroxime Axetil [Cefuroxime] 500 mg PO BID #8 tablet 10/14/17 [Rx] Past Medical History Cardiovascular History: Reports: CAD, High Cholesterol, Hypertension, Other ( See Below) Other Cardiovascular History: low HDL Respiratory History: Reports: Asthma, Other (See Below) Other Respiratory History: smoker Gastrointestinal History: Reports: Other (See Below) Other Gastrointestinal History: tubular adenoma of colon Genitourinary History: Reports: BPH, Other (See Below) Other Genitourinary History: bladder stones Musculoskeletal History: Reports: Arthritis, Back Pain, Chronic, Gout, Other ( See Below) Other Musculoskeletal History: quadriceps tendon rupture, degenerative arthritis , RLS, scoliosis, degenerative disc disease;lumbar, bilat. knee pain, osteopenia of bilat. forearms, carpel tunnel left Oncologic (Cancer) History: Reports: Basal Cell Carcinoma, Prostate Dermatologic History: Reports: Eczema, Other (See Below) Other Dermatologic History: actinic keratosis - Past Surgical History HEENT Surgical History: Reports: Cataract Surgery Cardiovascular Surgical History: Reports: Coronary Artery Stent Male Surgical History: Reports: Kidney Stone Extraction, Other (See Below) Other Male Surgeries/Procedures: 2006 Prostate surgery vaporization Neurological Surgical History: Reports: Other (See Below) Other Neurological Surgeries/Procedures: spine surgery 1978 Musculoskeletal Surgical History: Reports: Other (See Below) Other Musculoskeletal Surgeries/Procedures:: right quadricepts tendon rupture surgery Social & Family History - Caffeine Use Caffeine Use: Reports: Coffee ED ROS GENERAL - Review of Systems Review Of Systems: See Below Constitutional: Reports: Chills HEENT: Reports: No Symptoms Respiratory: Reports: Shortness of Breath Cardiovascular: Reports: No Symptoms Endocrine: Reports: Fatigue GI/Abdominal: Reports: No Symptoms : Reports: No Symptoms Musculoskeletal: Reports: No Symptoms Skin: Reports: No Symptoms Neurological: Reports: Weakness Psychiatric: Reports: No Symptoms Hematologic/Lymphatic: Reports: No Symptoms Immunologic: Reports: No Symptoms ED EXAM, GENERAL - Physical Exam Exam: See Below Exam Limited By: No Limitations General Appearance: Alert, WD/WN, No Apparent Distress Eye Exam: Bilateral Eye: EOMI, Normal Inspection, PERRL Ears: Normal TMs Nose: Normal Inspection, Normal Mucosa, No Blood Throat/Mouth: Normal Inspection, Normal Lips, Normal Teeth, Normal Gums, Normal Oropharynx, Normal Voice, No Airway Compromise Head: Atraumatic, Normocephalic Neck: Normal Inspection, Supple, Non-Tender, Full Range of Motion Respiratory/Chest: Rhonchi, Other (tight, poor air movement) Cardiovascular: Normal Peripheral Pulses, Regular Rate, Rhythm, No JVD, No Murmur Peripheral Pulses: 2+: Posterior Tibial (L), Posterior Tibial (R), Dorsalis Pedis (L), Dorsalis Pedis (R) GI/Abdominal: Normal Bowel Sounds, Soft, Non-Tender Back Exam: Normal Inspection, Full Range of Motion, NT Extremities: Normal Range of Motion, Non-Tender, Normal Capillary Refill, Pedal Edema (bilateral 2+) Neurological: Alert, Oriented, CN II-XII Intact, Normal Cognition, Normal Gait, Normal Reflexes, No Motor/Sensory Deficits Psychiatric: Normal Affect, Normal Mood Skin Exam: Warm, Dry, Intact, Normal Color, No Rash Lymphatic: No Adenopathy EKG INTERPRETATION EKG Date: 12/16/18 Time: 14:43 Rhythm: NSR Rate (Beats/Min): 70 [place]: Normal P-Wave: Present QRS: Normal ST-T: Normal QT: Normal Comparison: No Change Course - Vital Signs Last Recorded V/S: Last Vital Signs Temp 36.4 C 12/16/18 14:35 Pulse 69 12/16/18 15:45 Resp 18 12/16/18 14:35 BP 169/75 H 12/16/18 15:45 Pulse Ox 93 L 12/16/18 14:35 - Orders/Labs/Meds Orders: Active Orders 24 hr Category Date Time Status EKG Documentation Completion [RC] STAT Care 12/16/18 14:40 Active RT Aerosol Therapy [RC] ASDIRECTED Care 12/16/18 14:42 Active CULTURE BLOOD [BC] Stat Lab 12/16/18 14:54 Received CULTURE BLOOD [BC] Stat Lab 12/16/18 15:00 Received CULTURE URINE [RM] Stat Lab 12/16/18 16:05 Received URINALYSIS W/MICROSCOPIC [UA W/MICROSCOPIC] [URIN] Stat Lab 12/16/18 16:15 Ordered Blood Culture x2 Reflex Set [OM.PC] Stat Oth 12/16/18 14:40 Ordered Saline Lock Insert [OM.PC] Routine Oth 12/16/18 14:42 Ordered Labs: Laboratory Tests 12/16/18 12/16/18 12/16/18 Range/Units 14:54 14:54 14:54 WBC 9.3 (4.0-10.0) x10^3/uL RBC 4.14 L (4.5-6.0) x10^6/uL Hgb 13.0 L (14.0-18.0) g/dL Hct 37.7 L (40.0-52.0) % MCV 91.1 D (78.0-93.0) fL MCH 31.4 (26.0-32.0) pg MCHC 34.5 (32.0-36.0) g/dL RDW Coeff of Daisy 13.7 (10.0-15.0) % Plt Count 194 (130-400) x10^3/uL Neut % (Auto) 73.2 (50.0-80.0) % Lymph % (Auto) 16.6 L (25.0-50.0) % [place] % (Auto) 9.5 (2.0-11.0) % Eos % (Auto) 0.5 (0.0-4.0) % Baso % (Auto) 0.2 (0.2-1.2) % PT (10.0-12.8) SEC INR (2.0-3.5) Sodium 127 L* (136-145) mmol/L Potassium 4.2 (3.5-5.1) mmol/L Chloride 93 L (98-107) mmol/L Carbon Dioxide 28 (21-32) mmol/L Anion Gap 10.2 (10-20) mmol/L BUN 14 (7-18) mg/dL Creatinine 0.8 (0.70-1.30) mg/dL Est Cr Clr Drug Dosing TNP Estimated GFR (MDRD) > 60 Glucose 118 H (74-106) mg/dL Lactic Acid 1.4 (0.4-2.0) mmol/L Calcium 9.1 (8.5-10.1) mg/dL Corrected Calcium 9.66 (8.5-10.1) mg/dL Magnesium (1.8-2.4) mg/dL Total Bilirubin 0.7 (0.2-1.0) mg/dL AST 23 (15-37) U/L ALT 25 (16-63) U/L Alkaline Phosphatase 62 (46-116) U/L Troponin I < 0.017 (<=0.056) ng/mL C-Reactive Protein 5.7 H (<=0.9) mg/dL NT-Pro-B Natriuret Pep 274 (<=450) pg/mL Total Protein 7.0 (6.4-8.2) g/dL Albumin 3.3 L (3.4-5.0) g/dL Globulin 3.7 Albumin/Globulin Ratio 0.89 TSH, Ultra Sensitive 1.516 (0.358-3.74) uIU/mL Urine Color (YELLOW) Urine Appearance (CLEAR) Urine pH (5.0-8.0) Ur Specific [place] Urine Protein (NEGATIVE) mg/dL Urine Glucose (UA) (NEGATIVE) mg/dL Urine Ketones (NEGATIVE) mg/dL Urine Occult Blood (NEGATIVE) Urine Nitrite (NEGATIVE) Urine Bilirubin (NEGATIVE) Urine Urobilinogen (0.2) EU/dL Ur Leukocyte Esterase (NEGATIVE) Urine RBC (NOT SEEN) /HPF Urine WBC (NOT SEEN) /HPF Ur Squamous Epith Cells (NEGATIVE) /HPF Amorphous Sediment Urine Bacteria (NEGATIVE) /HPF Hyaline Casts (NEGATIVE) /HPF Urine Mucus (NEGATIVE) /LPF 12/16/18 12/16/18 12/16/18 Range/Units 14:54 14:54 16:05 WBC (4.0-10.0) x10^3/uL RBC (4.5-6.0) x10^6/uL Hgb (14.0-18.0) g/dL Hct (40.0-52.0) % MCV (78.0-93.0) fL MCH (26.0-32.0) pg MCHC (32.0-36.0) g/dL RDW Coeff of Daisy (10.0-15.0) % Plt Count (130-400) x10^3/uL Neut % (Auto) (50.0-80.0) % Lymph % (Auto) (25.0-50.0) % [place] % (Auto) (2.0-11.0) % Eos % (Auto) (0.0-4.0) % Baso % (Auto) (0.2-1.2) % PT 10.7 (10.0-12.8) SEC INR 0.9 L (2.0-3.5) Sodium (136-145) mmol/L Potassium (3.5-5.1) mmol/L Chloride (98-107) mmol/L Carbon Dioxide (21-32) mmol/L Anion Gap (10-20) mmol/L BUN (7-18) mg/dL Creatinine (0.70-1.30) mg/dL Est Cr Clr Drug Dosing Estimated GFR (MDRD) Glucose (74-106) mg/dL Lactic Acid (0.4-2.0) mmol/L Calcium (8.5-10.1) mg/dL Corrected Calcium (8.5-10.1) mg/dL Magnesium 1.7 L (1.8-2.4) mg/dL Total Bilirubin (0.2-1.0) mg/dL AST (15-37) U/L ALT (16-63) U/L Alkaline Phosphatase (46-116) U/L Troponin I (<=0.056) ng/mL C-Reactive Protein (<=0.9) mg/dL NT-Pro-B Natriuret Pep (<=450) pg/mL Total Protein (6.4-8.2) g/dL Albumin (3.4-5.0) g/dL Globulin Albumin/Globulin Ratio TSH, Ultra Sensitive (0.358-3.74) uIU/mL Urine Color Dark yellow H (YELLOW) Urine Appearance Turbid H (CLEAR) Urine pH 7.5 (5.0-8.0) Ur Specific [place] 1.015 Urine Protein 100 H (NEGATIVE) mg/dL Urine Glucose (UA) Negative (NEGATIVE) mg/dL Urine Ketones Trace H (NEGATIVE) mg/dL Urine Occult Blood Moderate H (NEGATIVE) Urine Nitrite Negative (NEGATIVE) Urine Bilirubin Small H (NEGATIVE) Urine Urobilinogen 1.0 (0.2) EU/dL Ur Leukocyte Esterase Moderate H (NEGATIVE) Urine RBC 0-5 (NOT SEEN) /HPF Urine WBC 30-40 H (NOT SEEN) /HPF Ur Squamous Epith Cells Not seen (NEGATIVE) /HPF Amorphous Sediment Few Urine Bacteria Few H (NEGATIVE) /HPF Hyaline Casts Few H (NEGATIVE) /HPF Urine Mucus Few H (NEGATIVE) /LPF Meds: Medications Discontinued Medications Generic Name Dose Route Start Last Admin Trade Name Ez PRN Reason Stop Dose Admin Albuterol/Ipratropium 3 ml 12/16/18 14:42 12/16/18 15:05 Duoneb 3.0-0.5 Mg/3 Ml NEB 12/16/18 14:43 3 ml ONETIME ONE Administration Ceftriaxone Sodium 2 gm 12/16/18 17:04 12/16/18 17:15 Rocephin IVPUSH 12/16/18 17:05 2 gm STAT ONE Administration Sodium Chloride 1,000 mls @ 999 mls/hr 12/16/18 14:47 12/16/18 14:54 Normal Saline IV 12/16/18 15:47 999 mls/hr ONETIME ONE Administration Levofloxacin 500 mg 12/16/18 16:53 Levaquin PO 12/16/18 16:54 ONETIME ONE Levofloxacin 250 mg 12/16/18 16:54 Levaquin PO 12/16/18 16:55 ONETIME ONE Methylprednisolone Sodium Succinate 40 mg 12/16/18 14:42 12/16/18 15:05 Solu-Medrol IVPUSH 12/16/18 14:43 40 mg ONETIME ONE Administration Sodium Chloride 10 ml 12/16/18 14:42 Saline Flush FLUSH ASDIRECTED PRN Keep Vein Open Departure - Departure Time of Disposition: 17:35 Disposition: Home, Self-Care 01 Condition: Fair Clinical Impression: UTI, Urinary tract infectious disease - Discharge Information *PRESCRIPTION DRUG MONITORING PROGRAM REVIEWED*: Not Applicable *COPY OF PRESCRIPTION DRUG MONITORING REPORT IN PATIENT ANAY: Not Applicable Instructions: Urinary Tract Infection, Adult, Levofloxacin tablets, Probiotics Referrals: Emilie Louis, [Primary Care Provider] - Forms: ED Department Discharge Additional Instructions: Plan 1. Drink plenty of water 2. Levaquin 750 mg daily for 5 days 3. Follow up at the [facility] tomorrow 4. Take probiotics or eat 1-2 servings of yogurt to prevent a bacterial infection of the gut due to antibiotic use. 5. Please call us or return if you have any further questions or concerns. ED Communication - ED Communication Date/Time Date: 12/16/18 Time Called: 16:40 - Discussed Case With (1) Discussed Case With (1): Other Provider (Dr. Emilie Louis contacted regarding labs. We will treat with Levaquin and have him follow up in the clinic tomorrow for close supervision. No pneumonia. UTI) - Problem List & Annotations (1) Hyponatremia SNOMED Code(s): 24262914 Code(s): E87.1 - HYPO-OSMOLALITY AND HYPONATREMIA Status: Acute Priority : Medium (2) Dehydration SNOMED Code(s): 00009933 Code(s): E86.0 - DEHYDRATION Status: Acute Priority: Medium (3) UTI, Urinary tract infectious disease SNOMED Code(s): 08181211 Code(s): N39.0 - URINARY TRACT INFECTION, SITE NOT SPECIFIED Status: Acute Priority: Medium - Problem List Review Problem List Initiated/Reviewed/Updated: Yes - My Orders Last 24 Hours: My Active Orders 12/16/18 14:40 EKG Documentation Completion [RC] STAT Blood Culture x2 Reflex Set [OM.PC] Stat 12/16/18 14:42 RT Aerosol Therapy [RC] ASDIRECTED Saline Lock Insert [OM.PC] Routine 12/16/18 14:54 CULTURE BLOOD [BC] Stat 12/16/18 15:00 CULTURE BLOOD [BC] Stat 12/16/18 16:05 CULTURE URINE [RM] Stat 12/16/18 16:15 URINALYSIS W/MICROSCOPIC [UA W/MICROSCOPIC] [URIN] Stat - Assessment/Plan Last 24 Hours: My Active Orders 12/16/18 14:40 EKG Documentation Completion [RC] STAT Blood Culture x2 Reflex Set [OM.PC] Stat 12/16/18 14:42 RT Aerosol Therapy [RC] ASDIRECTED Saline Lock Insert [OM.PC] Routine 12/16/18 14:54 CULTURE BLOOD [BC] Stat 12/16/18 15:00 CULTURE BLOOD [BC] Stat 12/16/18 16:05 CULTURE URINE [RM] Stat 12/16/18 16:15 URINALYSIS W/MICROSCOPIC [UA W/MICROSCOPIC] [URIN] Stat Assessment:: Urinary tract infection hyponatremia Plan: Plan 1. Drink plenty of water 2. Levaquin 750 mg daily for 5 days 3. Follow up at the [facility] tomorrow 4. Take probiotics or eat 1-2 servings of yogurt to prevent a bacterial infection of the gut due to antibiotic use. 5. Please call us or return if you have any further questions or concerns.
[2018-12-16 15:38] LABS: CHLORIDE,CL 93 mmol/L (98-107)
[2018-12-16 15:39] LABS: ANION GAP 10.2 mmol/L (10-20); SODIUM,NA 127 mmol/L (136-145)
--- NOTE | 2018-12-16 16:18 | CR ---
[id number] RAD/RAD Chest PA or AP 1V EXAM: RAD Chest PA or AP 1V INDICATION: SHORTNESS OF BREATH. COMPARISON: September 2017. DISCUSSION: Cardiomediastinal silhouette is normal in size and contour. No infiltrate, effusion, pneumothorax, or edema. IMPRESSION: No acute findings in the chest. Сергей Salomon MD 12/16/18 [id number] Thank you for allowing us to participate in the care of your patient.
[2018-12-16] MEDS ORDERED: Levofloxacin 500 MG Tab PO ONE (16:53)
[2018-12-16] MEDS ORDERED: Levofloxacin 250 MG Tab PO ONE (16:54)
[2018-12-16] MEDS ORDERED: cefTRIAXone 2 GM Vial IVPUSH ONE (17:04)
[2018-12-16 18:07] VITALS: BP 169/75
== END 2018-12-16 17:35 | disposition home or self-care (01) ==
LOC: VM.ED 14:33
DX: N39.0 Urinary tract infection, site not specified (principal); E87.1 Hypo-osmolality and hyponatremia; E87.6 Hypokalemia; I10 Essential (primary) hypertension; E78.00 Pure hypercholesterolemia, unspecified; I25.10 Atherosclerotic heart disease of native coronary artery without angina pectoris; J45.909 Unspecified asthma, uncomplicated; Z79.899 Other long term (current) drug therapy; Z88.0 Allergy status to penicillin; Z88.8 Allergy status to other drugs, medicaments and biological substances; Z79.82 Long term (current) use of aspirin
CPT/HCPCS: 36415; 71045; 80053; 81001; 83605; 83735; 83880; 84443; 84484; 85025; 85610; 86140; 87040; 87086; 93005; 94640; 96361; 96374; 96375; 99285; J0696; J2920; J7030; J7620-GY

== ENCOUNTER 2019-04-03 10:52 | Emergency (ER) | payer MEDICARE, OTHER ==
--- NOTE | 2019-04-03 11:12 | EDM.PDOC ---
ED HPI GENERAL MEDICAL PROBLEM - General Chief Complaint: Cardiovascular Problem Stated Complaint: low heart rate bp decreased responsiveness Time Seen by Provider: 04/03/19 10:55 Source of Information: Reports: Patient, EMS, Intermediate Records History Limitations: Reports: No Limitations - History of Present Illness INITIAL COMMENTS - FREE TEXT/NARRATIVE: Patient at local alf and was checked on him by staff approximately 11: 15 this morning was found with a non-detectable radial pulse and EMS was called patient also had decreased responsiveness per EMS arrival heart rate was in the 30s and was not alert he was given 0.5 mg of atropine IV with a good response heart rate went up into the 70s patient became more alert and he was transported to the ER. Upon arrival to the ER patient is alert and oriented 4 follows all commands has complaints of abdominal pain and fullness that he describes with some nausea. He denies any other complaints at this time His daughter was called and states that he has a history of hyponatremia and has done this a few other times she was questions known AAA status and does not know if he has one Onset: Today Duration: Minutes:, Hour(s): Upper Abdominal Pain Score (Numeric/FACES): 9 - Related Data Allergies Allergy/AdvReac Type Severity Reaction Status Date / Time bupropion [From Wellbutrin] Allergy Lightheaded Verified 12/16/18 15:04 ness Penicillins Allergy Hives Verified 12/16/18 15:04 Home Meds: Home Meds Allopurinol [Zyloprim] 300 mg PO DAILY 10/11/17 [History] Ascorbic Acid 1,000 mg PO DAILY 10/11/17 [History] Aspirin [Halfprin] 81 mg PO DAILY 10/11/17 [History] Bicalutamide [Casodex] 50 mg PO DAILY 10/11/17 [History] Calcium Carbonate [Calcium] 600 mg PO DAILY 10/11/17 [History] Cholecalciferol (Vitamin D3) [Vitamin D3] 1,000 units PO DAILY 10/11/17 [History ] Metoprolol Succinate [Toprol XL] 12.5 mg PO BEDTIME 10/11/17 [History] Nitroglycerin [Nitrostat] 0.4 mg SL ASDIRECTED PRN 10/11/17 [History] Pramipexole Di-HCl [Mirapex] 0.25 mg PO BID 10/11/17 [History] Pramipexole [Mirapex] 0.125 mg PO DAILY 10/11/17 [History] Simvastatin 40 mg PO DAILY 10/11/17 [History] Tamsulosin [Flomax] 0.4 mg PO DAILY 10/11/17 [History] Azithromycin [IJD: Azithromycin] 500 mg PO DAILY #8 tab 10/14/17 [Rx] Cefuroxime Axetil [Cefuroxime] 500 mg PO BID #8 tablet 10/14/17 [Rx] Past Medical History Cardiovascular History: Reports: CAD, High Cholesterol, Hypertension, Other ( See Below) Other Cardiovascular History: low HDL Respiratory History: Reports: Asthma, Other (See Below) Other Respiratory History: smoker Gastrointestinal History: Reports: Other (See Below) Other Gastrointestinal History: tubular adenoma of colon Genitourinary History: Reports: BPH, Other (See Below) Other Genitourinary History: bladder stones Musculoskeletal History: Reports: Arthritis, Back Pain, Chronic, Gout, Other ( See Below) Other Musculoskeletal History: quadriceps tendon rupture, degenerative arthritis , RLS, scoliosis, degenerative disc disease;lumbar, bilat. knee pain, osteopenia of bilat. forearms, carpel tunnel left Oncologic (Cancer) History: Reports: Basal Cell Carcinoma, Prostate Dermatologic History: Reports: Eczema, Other (See Below) Other Dermatologic History: actinic keratosis - Past Surgical History HEENT Surgical History: Reports: Cataract Surgery Cardiovascular Surgical History: Reports: Coronary Artery Stent Male Surgical History: Reports: Kidney Stone Extraction, Other (See Below) Other Male Surgeries/Procedures: 2006 Prostate surgery vaporization Neurological Surgical History: Reports: Other (See Below) Other Neurological Surgeries/Procedures: spine surgery 1978 Musculoskeletal Surgical History: Reports: Other (See Below) Other Musculoskeletal Surgeries/Procedures:: right quadricepts tendon rupture surgery Social & Family History - Caffeine Use Caffeine Use: Reports: Coffee ED ROS GENERAL - Review of Systems Review Of Systems: See Below Constitutional: Denies: Fever, Chills, Malaise, Weakness HEENT: Reports: No Symptoms Respiratory: Reports: No Symptoms Cardiovascular: Denies: Chest Pain, Blood Pressure Problem, Lightheadedness, Orthopnea, Syncope Endocrine: Reports: No Symptoms GI/Abdominal: Reports: Abdominal Pain : Reports: No Symptoms Musculoskeletal: Reports: No Symptoms Skin: Reports: No Symptoms Neurological: Reports: No Symptoms Psychiatric: Reports: No Symptoms Hematologic/Lymphatic: Reports: No Symptoms Immunologic: Reports: No Symptoms ED EXAM, GENERAL - Physical Exam Exam: See Below Exam Limited By: No Limitations General Appearance: Alert, WD/WN, No Apparent Distress Eye Exam: Bilateral Eye: PERRL (eomi ) Ears: Normal External Exam, Normal Canal, Hearing Grossly Normal, Normal TMs Nose: Normal Inspection, Normal Mucosa, No Blood Throat/Mouth: Normal Inspection, Normal Lips, Normal Teeth, Normal Gums, Normal Oropharynx, Normal Voice, No Airway Compromise Head: Atraumatic, Normocephalic Neck: Normal Inspection, Supple, Non-Tender, Full Range of Motion Respiratory/Chest: No Respiratory Distress, Lungs Clear, Normal Breath Sounds, No Accessory Muscle Use, Chest Non-Tender Cardiovascular: Normal Peripheral Pulses, Regular Rate, Rhythm, No Edema, No Gallop, No JVD, No Murmur, No Rub GI/Abdominal: Other (Patient noted to have a distended abdomen with a mass appering midline at this time physical exam for abdomen was deferred secondary to questionable AAA patient will receive a CT scan abdomen and pelvis). 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 unchanged from prior Lab work was all normal Spoke with the patient and family patient wishes to go home no further workup no transfer no admission or observation states he has an appointment tomorrow with urologist secondary to increased PSA which he wants to keep States he will follow with his primary care provider risk for significant benefit of medication was discussed with the patient and family with observation still wants to go home Last Recorded V/S: Last Vital Signs Temp 35.7 C 04/03/19 11:10 Pulse 61 04/03/19 12:27 Resp 12 04/03/19 12:27 BP 170/79 H 04/03/19 12:27 Pulse Ox 96 04/03/19 12:27 - Orders/Labs/Meds Orders: Active Orders 24 hr Category Date Time Status EKG Documentation Completion [RC] STAT Care 04/03/19 11:05 Active Labs: Laboratory Tests 04/03/19 04/03/19 04/03/19 Range/Units 11:15 11:15 11:18 WBC 6.3 (4.0-10.0) x10^3/uL RBC 3.96 L (4.5-6.0) x10^6/uL Hgb 12.7 L (14.0-18.0) g/dL Hct 36.5 L (40.0-52.0) % MCV 92.2 (78.0-93.0) fL MCH 32.1 H (26.0-32.0) pg MCHC 34.8 (32.0-36.0) g/dL RDW Coeff of Diasy 13.2 (10.0-15.0) % Plt Count 202 (130-400) x10^3/uL Add Manual Diff Yes Neutrophils % (Manual) 58 (50-80) % Lymphocytes % (Manual) 33 (25-50) % Monocytes % (Manual) 5 (2-11) % Eosinophils % (Manual) 4 (0-4) % Platelet Estimate Adequate Sodium 132 L (69-191) mmol/L Potassium 3.9 (1.5-9.9) mmol/L Chloride 96 L (54-184) mmol/L Carbon Dioxide 24 (21-32) mmol/L Anion Gap 15.9 (10-20) mmol/L BUN 12 (7-18) mg/dL Creatinine 0.9 (0.70-1.30) mg/dL Est Cr Clr Drug Dosing 54.89 mL/min Estimated GFR (MDRD) > 60 Glucose 114 H (74-106) mg/dL Calcium 8.9 (8.5-10.1) mg/dL POC Troponin I 0.00 (0.00-0.08) ng/mL Meds: Medications Discontinued Medications Generic Name Dose Route Start Last Admin Trade Name Freq PRN Reason Stop Dose Admin Iopamidol 100 ml 04/03/19 11:16 04/03/19 11:52 Isovue-300 (61%) IVPUSH 04/03/19 11:17 100 ml ONETIME ONE Administration Departure - Departure Time of Disposition: 12:40 Disposition: Home, Self-Care 01 Condition: Fair Clinical Impression: Bradycardia, Abdominal pain - Discharge Information Forms: ED Department Discharge - Problem List & Annotations (1) Abdominal pain SNOMED Code(s): 79879774 Code(s): R10.9 - UNSPECIFIED ABDOMINAL PAIN Status: Acute Current Visit: Yes (2) Bradycardia SNOMED Code(s): 26375786 Code(s): R00.1 - BRADYCARDIA, UNSPECIFIED Status: Acute Current Visit: Yes - My Orders Last 24 Hours: My Active Orders 04/03/19 11:05 EKG Documentation Completion [RC] STAT - Assessment/Plan Last 24 Hours: My Active Orders 04/03/19 11:05 EKG Documentation Completion [RC] STAT
[2019-04-03] MEDS ORDERED: Iopamidol 612 MG/ML 100 ML Bottle IVPUSH ONE (11:16)
[2019-04-03 11:35] LABS: CHLORIDE,CL 96 mmol/L (54-184); SODIUM,NA 132 mmol/L (69-191)
[2019-04-03 11:37] LABS: ANION GAP 15.9 mmol/L (10-20)
--- NOTE | 2019-04-03 12:24 | CT ---
[id number] CT/CTA Abdomen Pelvis EXAM: CTA Abdomen Pelvis INDICATION: RULE OUT AAA. COMPARISON: June 27, 2018. FINDINGS: A 32 mm fusiform infrarenal abdominal aortic aneurysm has not appreciably changed. There is a minimal chronic focal dissection within the aneurysm which is of doubtful clinical significance. Tortuous ectatic common iliac arteries are also unchanged. Atherosclerotic plaque is seen scattered throughout the aorta and iliac arteries. Mild atherosclerotic plaque at the origins of the renal arteries, celiac and SMA. No significant stenosis. No acute dissection or evidence of rupture. Arcuate configuration of the celiac artery. Mild to moderate fecal retention within the rectosigmoid colon. A mild thick-walled appearance of the urinary bladder could be from cystitis or chronic outlet obstruction. Radiotherapy seeds within the prostate. Scattered small bilateral renal cysts. Stable significant nodular thickening of both adrenal glands. Advanced degenerative changes throughout the lumbar spine. Gynecomastia. The liver, gallbladder, pancreas, spleen, small bowel and the appendix are normal in appearance. No adenopathy, free air free fluid. IMPRESSION: 1. A 32 mm infrarenal abdominal aortic aneurysm is unchanged in caliber. 2. Mild to moderate rectosigmoid colonic fecal retention. Low Vivar MD 04/03/19 [id number] Thank you for allowing us to participate in the care of your patient.
[2019-04-03 12:33] VITALS: BP 170/79; PULSE 61
== END 2019-04-03 12:58 | disposition home or self-care (01) ==
LOC: VM.ED 10:52
DX: R00.1 Bradycardia, unspecified (principal); R10.9 Unspecified abdominal pain; R14.0 Abdominal distension (gaseous); I25.10 Atherosclerotic heart disease of native coronary artery without angina pectoris; I10 Essential (primary) hypertension; E78.00 Pure hypercholesterolemia, unspecified; N40.0 Benign prostatic hyperplasia without lower urinary tract symptoms; E78.6 Lipoprotein deficiency; J45.909 Unspecified asthma, uncomplicated; F17.200 Nicotine dependence, unspecified, uncomplicated; Z79.82 Long term (current) use of aspirin; Z88.0 Allergy status to penicillin; Z88.8 Allergy status to other drugs, medicaments and biological substances; Z79.899 Other long term (current) drug therapy
CPT/HCPCS: 36415; 74174; 80048; 81001; 84484; 85025; 99285; Q9967; 99284-GF

== ENCOUNTER 2020-02-10 08:22 | Emergency (ER) | payer MEDICARE, OTHER ==
[2020-02-10] MEDS: Aspirin 81 MG Tab.Chew PO ONE (08:32)
[2020-02-10] MEDS: Nitroglycerin 0.4 MG Tab.SL SL ONE ×2 (08:42→08:52)
--- NOTE | 2020-02-10 08:46 | EDM.PDOC ---
ED HPI GENERAL MEDICAL PROBLEM - General Stated Complaint: CP Time Seen by Provider: 02/10/20 08:25 Source of Information: Reports: Patient History Limitations: Reports: No Limitations - History of Present Illness INITIAL COMMENTS - FREE TEXT/NARRATIVE: Patient comes emergency department today from the [facility] [place] [facility] with complaints of bilateral arm achiness. This patient this morning awoke after laying on his left side which he typically does not do and complained of achiness primarily in his left arm and some in his right arm. Achiness does get a little bit worse when he moves his arms up. This is a very similar achiness that he had when he had cardiac stents 18 years ago. He is about a half a pack a day smoker for most of his life. He has had no increased cough shortness of breath congestion or sputum production. He has no chest pain pressure or discomfort. No abdominal pain nausea or vomiting. No fever no chills. No palpitations weakness dizziness lightheadedness. No Covid Exposure and no Covid Symptoms. This patient does relate that he typically sleeps on his back or his right side because when he sleeps on his left side he ends up with pain on his arm. He did sleep on his left side last night which is unusual for him. He has also been doing quite a bit more physical activity lifting his who needs quite a bit assistance at home and he has had some soreness from this as well. Bilateral Arm Pain Score (Numeric/FACES): 1 - Related Data Allergies Allergy/AdvReac Type Severity Reaction Status Date / Time bupropion [From Wellbutrin] Allergy Lightheaded Verified 02/10/20 09:04 ness Penicillins Allergy Hives Verified 02/10/20 09:04 Home Meds: Home Meds Ascorbic Acid 1,000 mg PO DAILY 10/11/17 [History] Aspirin [Halfprin] 81 mg PO DAILY 10/11/17 [History] Calcium Carbonate [Calcium] 600 mg PO DAILY 10/11/17 [History] Cholecalciferol (Vitamin D3) [Vitamin D3] 1,000 units PO DAILY 10/11/17 [History] Nitroglycerin [Nitrostat] 0.4 mg SL ASDIRECTED PRN 10/11/17 [History] Pramipexole Di-HCl [Mirapex] 0.25 mg PO BID 10/11/17 [History] Pramipexole [Mirapex] 0.125 mg PO DAILY 10/11/17 [History] Simvastatin 40 mg PO DAILY 10/11/17 [History] allopurinoL [Zyloprim] 300 mg PO DAILY 10/11/17 [History] Acetaminophen [Tylenol Extra Strength] 500 mg PO DAILY 02/10/20 [History] Enzalutamide [Xtandi] 40 mg PO DAILY 02/10/20 [History] Glycopyrrolate/Formoterol Fum [Bevespi Aerosphere Inhaler] 2 puff IH BID 02/10/20 [History] amLODIPine Besylate [Norvasc] 2.5 mg PO DAILY 02/10/20 [History] Past Medical History Cardiovascular History: Reports: CAD, High Cholesterol, Hypertension, Other (See Below) Other Cardiovascular History: low HDL Respiratory History: Reports: Asthma, Other (See Below) Other Respiratory History: smoker Gastrointestinal History: Reports: Other (See Below) Other Gastrointestinal History: tubular adenoma of colon Genitourinary History: Reports: BPH, Other (See Below) Other Genitourinary History: bladder stones Musculoskeletal History: Reports: Arthritis, Back Pain, Chronic, Gout, Other (See Below) Other Musculoskeletal History: quadriceps tendon rupture, degenerative arthritis, RLS, scoliosis, degenerative disc disease;lumbar, bilat. knee pain, osteopenia of bilat. forearms, carpel tunnel left Oncologic (Cancer) History: Reports: Basal Cell Carcinoma, Prostate Dermatologic History: Reports: Eczema, Other (See Below) Other Dermatologic History: actinic keratosis - Past Surgical History HEENT Surgical History: Reports: Cataract Surgery Cardiovascular Surgical History: Reports: Coronary Artery Stent Male Surgical History: Reports: Kidney Stone Extraction, Other (See Below) Other Male Surgeries/Procedures: 2006 Prostate surgery vaporization Neurological Surgical History: Reports: Other (See Below) Other Neurological Surgeries/Procedures: spine surgery 1979 Musculoskeletal Surgical History: Reports: Other (See Below) Other Musculoskeletal Surgeries/Procedures:: right quadricepts tendon rupture surgery Social & Family History - Caffeine Use Caffeine Use: Reports: Coffee ED ROS GENERAL - Review of Systems Review Of Systems: Comprehensive ROS is negative, except as noted in HPI. ED EXAM, GENERAL - Physical Exam Exam: See Below Exam Limited By: No Limitations General Appearance: Alert, WD/WN, No Apparent Distress Eye Exam: Bilateral Eye: EOMI, PERRL Ears: Normal External Exam Nose: Normal Inspection Throat/Mouth: Normal Inspection Head: Atraumatic, Normocephalic Neck: Normal Inspection, Supple Respiratory/Chest: No Respiratory Distress, Lungs Clear, Decreased Breath Sounds (equally throughout with faint expiratory wheezing. ) Cardiovascular: Normal Peripheral Pulses, Regular Rate, Rhythm, Bradycardia Peripheral Pulses: 1+: Posterior Tibial (L), Posterior Tibial (R), Dorsalis Pedis (L), Dorsalis Pedis (R), 2+: Radial (L), Radial (R) GI/Abdominal: Normal Bowel Sounds, Soft, Non-Tender (Male) Exam: Deferred Rectal (Males) Exam: Deferred Back Exam: Normal Inspection, Full Range of Motion Extremities: Normal Inspection, Normal Range of Motion, Non-Tender (His extremities move all extremities strong and equal to command. There is no bruising swelling ecchymosis or other signs of trauma. There is no tenderness on palpation. The achiness in his arm primarily is left does get worse with movement of the arm.), Pedal Edema (1+ edema bilaterally equal) Neurological: Alert, Oriented, Normal Cognition, No Motor/Sensory Deficits Psychiatric: Normal Affect, Normal Mood Skin Exam: Warm, Dry, Intact, Normal Color, No Rash EKG INTERPRETATION EKG Date: 02/10/20 Time: 08:28 Rhythm: NSR Rate (Beats/Min): 55 [place]: Normal P-Wave: Present QRS: Normal ST-T: Other (T wave inversion I aVL and flattening V5,V6 which is changed from the ambulance 12 lead that had clearly inverted T waves V5 V6) QT: Prolonged (unchanged from previous.) Comparison: Change From Previous EKG Course - Vital Signs Last Recorded V/S: Last Vital Signs Temp 97.5 F 02/10/20 08:25 Pulse 60 02/10/20 12:28 Resp 16 02/10/20 12:28 BP 132/61 02/10/20 12:28 Pulse Ox 97 02/10/20 12:28 - Orders/Labs/Meds Labs: Laboratory Tests 02/10/20 02/10/20 02/10/20 Range/Units 08:41 08:41 08:41 WBC 5.2 (4.0-10.0) x10^3/uL RBC 3.69 L (4.5-6.0) x10^6/uL Hgb 11.9 L (14.0-18.0) g/dL Hct 34.1 L (40.0-52.0) % MCV 92.4 (78.0-93.0) fL MCH 32.2 H (26.0-32.0) pg MCHC 34.9 (32.0-36.0) g/dL RDW Coeff of Daisy 12.9 (10.0-15.0) % Plt Count 175 (130-400) x10^3/uL Neut % (Auto) 49.3 L (50.0-80.0) % Lymph % (Auto) 35.0 (25.0-50.0) % [place] % (Auto) 12.2 H (2.0-11.0) % Eos % (Auto) 3.1 (0.0-4.0) % Baso % (Auto) 0.4 (0.2-1.2) % PT 10.2 (9.5-12.3) SEC INR 0.9 L (2.0-3.5) APTT 28.4 (25.6-32.8) SEC Sodium 131 L (136-145) mmol/L Potassium 4.1 (3.5-5.1) mmol/L Chloride 96 L (98-107) mmol/L Carbon Dioxide 25 (21-32) mmol/L Anion Gap 14.1 (10-20) mmol/L BUN 11 (7-18) mg/dL Creatinine 0.6 L (0.70-1.30) mg/dL Est Cr Clr Drug Dosing TNP Estimated GFR (MDRD) > 60 Glucose 84 (74-106) mg/dL Calcium 8.7 (8.5-10.1) mg/dL Corrected Calcium 9.02 (8.5-10.1) mg/dL Total Bilirubin 0.6 (0.2-1.0) mg/dL AST 23 (15-37) U/L ALT 22 (16-63) U/L Alkaline Phosphatase 58 (46-116) U/L Troponin I < 0.017 (<=0.056) ng/mL C-Reactive Protein (<=0.9) mg/dL Total Protein 6.5 (6.4-8.2) g/dL Albumin 3.6 (3.4-5.0) g/dL Globulin 2.9 Albumin/Globulin Ratio 1.24 02/10/20 02/10/20 Range/Units 08:41 12:28 WBC (4.0-10.0) x10^3/uL RBC (4.5-6.0) x10^6/uL Hgb (14.0-18.0) g/dL Hct (40.0-52.0) % MCV (78.0-93.0) fL MCH (26.0-32.0) pg MCHC (32.0-36.0) g/dL RDW Coeff of Daisy (10.0-15.0) % Plt Count (130-400) x10^3/uL Neut % (Auto) (50.0-80.0) % Lymph % (Auto) (25.0-50.0) % [place] % (Auto) (2.0-11.0) % Eos % (Auto) (0.0-4.0) % Baso % (Auto) (0.2-1.2) % PT (9.5-12.3) SEC INR (2.0-3.5) APTT (25.6-32.8) SEC Sodium (136-145) mmol/L Potassium (3.5-5.1) mmol/L Chloride (98-107) mmol/L Carbon Dioxide (21-32) mmol/L Anion Gap (10-20) mmol/L BUN (7-18) mg/dL Creatinine (0.70-1.30) mg/dL Est Cr Clr Drug Dosing Estimated GFR (MDRD) Glucose (74-106) mg/dL Calcium (8.5-10.1) mg/dL Corrected Calcium (8.5-10.1) mg/dL Total Bilirubin (0.2-1.0) mg/dL AST (15-37) U/L ALT (16-63) U/L Alkaline Phosphatase (46-116) U/L Troponin I < 0.018 (<=0.056) ng/mL C-Reactive Protein 0.3 (<=0.9) mg/dL Total Protein (6.4-8.2) g/dL Albumin (3.4-5.0) g/dL Globulin Albumin/Globulin Ratio Meds: Medications Discontinued Medications Generic Name Dose Route Start Last Admin Trade Name Ez PRN Reason Stop Dose Admin Aspirin 324 mg 02/10/20 08:31 02/10/20 08:32 Aspirin PO 02/10/20 08:32 324 mg ONETIME ONE Administration Nitroglycerin 0.4 mg 02/10/20 08:39 02/10/20 08:42 Nitrostat SL 02/10/20 08:40 0.4 mg ONETIME ONE Administration Nitroglycerin 0.4 mg 02/10/20 08:50 02/10/20 08:52 Nitrostat SL 02/10/20 08:51 0.4 mg ONETIME ONE Administration Pramipexole Dihydrochloride 0.125 mg 02/10/20 09:30 02/10/20 09:44 Mirapex PO 02/10/20 09:31 0.125 mg ONETIME ONE Administration - Re-Assessments/Exams Free Text/Narrative Re-Assessment/Exam: 02/10/20 09:03 The patient was given 324 of chewable aspirin. Nitro x 2. Without any change. Repeat EKG 02/10/20 09:10 [id number] Still evident T wave changes I aVL V5 V6 no change in symptoms with the nitro. Patient's initial troponin was negative. Subsequently his achiness of his primarily his left arm resolved on its own. Repeat a troponin at the 4-hour level and he has been pain-free for many hours and his troponin is negative. This is more likely musculoskeletal in nature as he has been doing quite a bit more lifting and working with his who needs quite a bit of care at home. He typically does not sleep on his left side and every time that he does he has this achiness on the arm and he did do this last night. He really has no other symptoms concerning for cardiac disease at this time. If anything new or worse he is to recheck. He is comfortable with this plan and his questions are answered. Departure - Departure Time of Disposition: 13:36 Disposition: Home, Self-Care 01 Clinical Impression: Muscle ache of extremity, Hyponatremia Instructions: Musculoskeletal Pain Referrals: Emilie Louis DO [Primary Care Provider] - Forms: ED Department Discharge Additional Instructions: Tylenol as needed for pain. Keep moving and physically active. Consider physical therapy if continued concerns of the muscle aches. Return to the ED if new or worsening symptoms. Follow up with PCP in the next 4-6 days if not improving sooner if worse. Sepsis Event Note (ED) - Focused Exam Vital Signs: Vital Signs Temp Pulse Resp BP BP Pulse Ox 02/10/20 12:28 60 16 132/61 97 02/10/20 11:28 58 L 14 108/57 L 97 02/10/20 10:28 58 L 13 143/71 H 98 02/10/20 08:52 140/74 02/10/20 08:42 166/76 H 02/10/20 08:25 97.5 F 58 L 11 L 166/76 H 98
[2020-02-10 09:04] LABS: PTT,PARTIAL THROMBOPLSTIN TIME 28.4 SEC (25.6-32.8)
[2020-02-10 09:10] LABS: CHLORIDE,CL 96 mmol/L (98-107); SODIUM,NA 131 mmol/L (136-145)
[2020-02-10 09:14] LABS: ANION GAP 14.1 mmol/L (10-20)
--- NOTE | 2020-02-10 09:31 | CR ---
[id number] RAD/RAD Chest PA or AP 1V EXAM: SINGLE VIEW CHEST. INDICATION: CHEST PAIN COMPARISON: CORRELATION IS MADE WITH DECEMBER 16, 2018 FINDINGS: The lungs are clear The cardiac silhouette is enlarged but stable IMPRESSION: NO PNEUMONIA OR EDEMA Philip Baumann MD 02/10/20 [id number] Thank you for allowing us to participate in the care of your patient.
[2020-02-10] MEDS: Pramipexole 0.125 MG Tab PO ONE (09:44)
[2020-02-10 12:40] VITALS: BP 132/61; PULSE 60
== END 2020-02-10 13:58 | disposition home or self-care (01) ==
LOC: VM.ED 08:25
DX: M79.18 Myalgia, other site (principal); E87.1 Hypo-osmolality and hyponatremia; I25.10 Atherosclerotic heart disease of native coronary artery without angina pectoris; E78.00 Pure hypercholesterolemia, unspecified; I10 Essential (primary) hypertension; J45.909 Unspecified asthma, uncomplicated; M10.9 Gout, unspecified; M41.9 Scoliosis, unspecified; G25.81 Restless legs syndrome; Z88.8 Allergy status to other drugs, medicaments and biological substances; Z88.0 Allergy status to penicillin; Z79.82 Long term (current) use of aspirin; Z79.899 Other long term (current) drug therapy
CPT/HCPCS: 36415; 71045; 80053; 84484; 85025; 85610; 85730; 86140; 93005; 99283; 99285-25; A9270-GY